=== PATIENT | male | born 1945 | race African-American/Black ===

== ENCOUNTER → 2019-10-08 | Outpatient (CLI) | payer MEDICARE, OTHER ==
[~2019-10-08] MED LIST: ATENOLOL50 MG ORAL; DOXAZOSIN MESYLA4 MG ORAL; HYDRALAZINE HCL50 MG ORAL; LISINOPRIL20 MG ORAL; MULTI-VITAMIN1 EACH PO; VITAMIN D1000 UNI1 ORAL
--- NOTE | 2019-10-08 16:11 | Diagnostic Imaging Report ---
Indication: Left heel wound and infection for one month Technique: Sagittal, axial, and coronal T1 FSE and FSE STIR images obtained of the hindfoot/ankle Comparison: none Findings: Heterogeneous STIR signal is seen throughout the calcaneus and talus, as well as throughout the visualized portions of the distal tibia and fibula. This is also visible to some extent in the bones of the midfoot on the coronal and axial sequences, is less striking on the sagittal sequences. There is corresponding but less striking marrow signal heterogeneity on the T1-weighted images, most apparent in the talus and calcaneus. A marker hinton an ulcer of the posterior plantar surface. The ulcer is clearly seen to demonstrate a thin neck extending approximately 1 cm deep to the skin surface and demonstrates a 4 x 9 mm diameter pocket of gas at its deepest aspect that communicates with the skin surface. There is edema of the subcutaneous fat in this area. No definite underlying focal osseous signal abnormality. No discrete fluid collection to suggest abscess is noted. The visualized large tendons are unremarkable. Impression: Posterior plantar surface ulcer, as described, also clinically evident, extending 1 cm deep to the skin surface. Surrounding mild soft tissue edema most likely indicates associated cellulitis. No evidence of drainable abscess collection No definite underlying signal abnormality to suggest osteomyelitis. Generalized signal heterogeneity of the bones of the ankle, significance/etiology uncertain No focal fluid collection to suggest abscess
== END | disposition home or self-care (01) ==
LOC: MRI 14:25
DX: L97.429 Non-pressure chronic ulcer of left heel and midfoot with unspecified severity (principal); M86.9 Osteomyelitis, unspecified

== ENCOUNTER → 2019-11-01 | Emergency (ER) | payer MEDICARE, OTHER ==
[~2019-11-01] VITALS: Ht 180.3 cm; Wt 72.6 kg
[~2019-11-01] MED LIST changes: +IBUPROFEN600 MG ORAL
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
--- NOTE | 2019-11-01 14:21 | NUR ---
ED Nurse Note: X-ray on bedside.
--- NOTE | 2019-11-01 14:30 | NUR ---
ED Nurse Note: X-ray done.
--- NOTE | 2019-11-01 14:34 | NUR ---
ED Nurse Note: PA on bedside.
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
[2019-11-01 14:49] VITALS: BP 110/72
--- NOTE | 2019-11-01 14:49 | NUR ---
ER DISCHARGE NOTE: Pt is cleared to be discharge per ERMD,. Pt is AOx4, on RA, VSS. pt was given dc and prescription instructions, pt was able to verbalize understanding, pt id band removed. pt is able to ambulate with cane. Pt left ER with all belongings.
--- NOTE | 2019-11-01 15:16 | Diagnostic Imaging Report ---
Indication: Trauma, pain Technique: 3 views of the right ankle Comparison: none Findings: No acute fractures. No dislocations. Joint spaces are preserved. Plantar and calcaneal spurs are noted. Small metallic foreign bodies, possibly small surgical clips, are seen adjacent to the medial malleolus. Impression: No acute bony trauma. Findings as noted
== END | disposition home or self-care (01) ==
LOC: EMR 14:40
DX: S93.401A Sprain of unspecified ligament of right ankle, initial encounter (principal); V19.9XXA Pedal cyclist (driver) (passenger) injured in unspecified traffic accident, initial encounter; Y92.9 Unspecified place or not applicable; F17.200 Nicotine dependence, unspecified, uncomplicated; I10 Essential (primary) hypertension; Z85.9 Personal history of malignant neoplasm, unspecified
CPT/HCPCS: 99283

== ENCOUNTER 2019-11-02 14:39 | Outpatient (RCR) | payer MEDICARE, OTHER | END 2019-11-19 | disposition home or self-care (01) | LOC: WCC 14:39 | DX: L97.526 Non-pressure chronic ulcer of other part of left foot with bone involvement without evidence of necrosis (principal); I10 Essential (primary) hypertension; Z85.46 Personal history of malignant neoplasm of prostate; Z85.118 Personal history of other malignant neoplasm of bronchus and lung | CPT/HCPCS: 11043; G0463 ==

== ENCOUNTER 2019-11-30 14:25 | Outpatient (RCR) | payer MEDICARE, OTHER | END 2019-12-18 | disposition home or self-care (01) | LOC: WCC 14:25 | DX: L89.624 Pressure ulcer of left heel, stage 4 (principal); I10 Essential (primary) hypertension; Z85.46 Personal history of malignant neoplasm of prostate; Z85.118 Personal history of other malignant neoplasm of bronchus and lung | CPT/HCPCS: 11055 ==

== ENCOUNTER 2020-01-01 18:36 | Emergency (ER) | payer MEDICARE, OTHER ==
[~2020-01-01] VITALS: Ht 180.3 cm; Wt 77.1 kg
[2020-01-01 18:40] VITALS: BP 118/73
[2020-01-01] MEDS ORDERED: Doxazosin 4mg tab ORAL STA (19:03)
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
[2020-01-01] MEDS ORDERED: DOXAZOSIN MESYLA4 MG ORAL (19:27)
[2020-01-01] MEDS ORDERED: LISINOPRIL40 MG ORAL (19:38)
[2020-01-01] MEDS ORDERED: CRESTOR20 MG ORAL (19:38)
== END 2020-01-01 19:44 | disposition home or self-care (01) ==
LOC: EDBD 18:36 → EMR 18:50
DX: N40.0 Benign prostatic hyperplasia without lower urinary tract symptoms (principal); Z76.0 Encounter for issue of repeat prescription; I10 Essential (primary) hypertension; Z85.9 Personal history of malignant neoplasm, unspecified
CPT/HCPCS: 99283

== ENCOUNTER 2020-03-05 14:53 | Emergency (ER) | payer MEDICARE, OTHER ==
[~2020-03-05] VITALS: Ht 180.3 cm; Wt 79.4 kg
[~2020-03-05 14:53] MED LIST changes: +CRESTOR20 MG ORAL; +LISINOPRIL40 MG ORAL
--- NOTE | 2020-03-05 15:18 | NUR ---
ED Nurse Note: Pt states the he wants a refill for lisinopril and his prostate cancer medication. pt said that he did not know that the primary pharmacy he goes to get his medication was closed. pt denies pain at this time.
[2020-03-05 15:19] VITALS: BP 189/92
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
[2020-03-05] MEDS ORDERED: TYLENOL325 MG ORAL (15:28)
[2020-03-05] MEDS ORDERED: DOXAZOSIN MESYLA4 MG ORAL (15:28)
[2020-03-05] MEDS ORDERED: MULTI-VITAMIN1 EACH PO (15:28)
[2020-03-05] MEDS ORDERED: CEPHALEXIN500 MG ORAL (15:28)
[2020-03-05] MEDS ORDERED: LISINOPRIL40 MG ORAL (15:28)
[2020-03-05] MEDS ORDERED: IBUPROFEN600 M1 ORAL (15:28)
[2020-03-05] MEDS ORDERED: CRESTOR20 MG ORAL (15:28)
[2020-03-05 15:30] VITALS: BP 177/94
--- NOTE | 2020-03-05 15:30 | NUR ---
ER DISCHARGE NOTE: Patient is cleared to be discharged per ERMD, pt is aox4, on room air, with stable vital signs. pt was given dc and prescription instructions, pt was able to verbalize understanding, pt id band and iv site removed. pt is able to ambulate with steady gait. pt took all belongings.
== END 2020-03-05 15:30 | disposition home or self-care (01) ==
LOC: EMR 15:30
DX: L97.519 Non-pressure chronic ulcer of other part of right foot with unspecified severity (principal); Z76.0 Encounter for issue of repeat prescription; I10 Essential (primary) hypertension; Z85.46 Personal history of malignant neoplasm of prostate
CPT/HCPCS: 99282

== ENCOUNTER 2020-12-04 14:00 | Emergency (ER) | payer MEDICARE, OTHER ==
[~2020-12-04] VITALS: Ht 180.3 cm; Wt 79.8 kg
[~2020-12-04 14:00] MED LIST changes: +CEPHALEXIN500 MG ORAL; +IBUPROFEN600 M1 ORAL; +TYLENOL325 MG ORAL
[2020-12-04 14:07] VITALS: BP 151/88
[2020-12-04] MEDS ORDERED: CARDURA8 MG ORAL (14:12)
--- NOTE | 2020-12-04 14:12 | NUR ---
ED Nurse Note: pt stated he just needs one pill of his meds and he will get a refill tomorrow.
[2020-12-04] MEDS ORDERED: Doxazosin 4mg tab ORAL ONE ×2 (14:30)
--- NOTE | 2020-12-04 14:57 | NUR ---
ER DISCHARGE NOTE: Patient is cleared to be discharged per ERMD, pt is aox4, on room air, with stable vital signs. pt was given dc and prescription instructions, pt was able to verbalize understanding. pt is able to ambulate with steady gait. pt took all belongings.
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
== END 2020-12-04 14:50 | disposition home or self-care (01) ==
LOC: EDBD 14:00 → EMR 14:49
DX: Z76.0 Encounter for issue of repeat prescription (principal); I10 Essential (primary) hypertension; Z85.9 Personal history of malignant neoplasm, unspecified
CPT/HCPCS: 99283